=== PATIENT | male | born 1930 | race Caucasian/White ===

== ENCOUNTER 2017-07-03 13:07 | Emergency (ER) | payer OTHER ==
[~2017-07-03] VITALS: Ht 177.8 cm; Wt 106.6 kg
[~2017-07-03 13:07] MED LIST: APAP500; ASPIR 8181 MG PO; ATIVAN0.5 MG PO; AUGMENTIN 875875 MG PO; CELEXA20 MG PO; CELEXA40 MG; CENTRUM SILVER1 EAC4 PO; COUMADIN 5 MG TA5 M1 PO; DARVOCET-N 1001 EACH PO; DEPAKOTE; DEPAKOTE ER250 MG PO; DULCOLAX10 MG RECTAL; FOLIC ACID1 MG; FOLIC ACID1 MG PO; HYDROCODONE-AP1 EAC6 PO; IMODIUM ADVANC1 EAC1; LASIX 40 MG TAB40 M2 PO; LEVOTHROID50 MCG; LEVOTHYROXIN0.125 M1 PO; LEVOTHYROXINE 0.15MG PO; LIPITOR10 MG PO; MIRALAX17 GM PO; ORAZINC220 MG PO; PEPCID40 MG PO; POTASSIUM20 PO; PRILOSEC 20 MG20 MG PO; PROMETHAZINE HC25 MG; SENNA PLUS; SENNA PLUS TAB1 EACH PO; SEROQUEL XR150 M1 PO; TIMOLOL MA0.5 %/5 M2 OP; TYLENOL325 MG PO; VITAMIN A & D113 GM; VITAMIN D1000 UNI1 PO; VITAMINC500 PO; XALATAN2.5 ML OP; ZOCOR 10 MG TAB10 MG PO
[2017-07-03 13:08] VITALS: BP 117/55
== END 2017-07-03 21:06 | disposition home or self-care (01) ==
LOC: ER 13:07
DX: L02.31 Cutaneous abscess of buttock (principal); K21.9 Gastro-esophageal reflux disease without esophagitis; E03.9 Hypothyroidism, unspecified; E78.5 Hyperlipidemia, unspecified; G40.909 Epilepsy, unspecified, not intractable, without status epilepticus; Z86.718 Personal history of other venous thrombosis and embolism

== ENCOUNTER 2018-08-29 13:09 | Inpatient (IN) | payer OTHER ==
[~2018-08-29] VITALS: Ht 193 cm; Wt 90.7 kg
[2018-08-29 13:14] VITALS: BP 81/50
--- NOTE | 2018-08-29 13:45 | NUR ---
SPIRITUAL PROVIDER AT BEDSIDE WITH PT
[2018-08-29 14:15] LABS: ABSOLUTE NEUTROPHILS 11.5 thou/uL (1.4-8.2); BASOPHILS 0.5 % (0.0-2.0); EOSINOPHILS 0.6 % (0.0-3.0); HEMATOCRIT 49.4 % (42.0-52.0); HEMOGLOBIN 15.8 gm/dL (14.0-18.0); LYMPHOCYTES 33.5 % (24.0-44.0); MCH 31.3 pg (26.0-34.0); MCV 97.7 fL (80.0-100.0); MONOCYTES 3.8 % (1.0-8.0); PLATELET COUNT 237 thou/uL (150-400); POLYS 61.6 % (36.0-66.0); RBC 5.05 mil/uL (4.50-6.00); RDW 14.9 % (10.5-14.5); WBC 18.6 thou/uL (4.0-11.0)
[2018-08-29 14:26] LABS: CALCIUM 9.2 mg/dL (8.5-10.1)
[2018-08-29 14:33] LABS: TROPONIN-I 0.13 ng/mL (<0.06)
[2018-08-29 14:41] VITALS: BP 99/54
[2018-08-29 14:56] VITALS: BP 97/53
[2018-08-29 15:37] VITALS: BP 149/64
--- NOTE | 2018-08-29 16:56 | NUR ---
RECEIVED PT APPROX 1500. NON RESPONSIVE. AGONAL BREATHING. NON REBREATHER ON. NOTED SKIN TEAR ON CHEST AND RIGHT HAND. IO/IV ACCESS NOTED. VSS. DR. CHA NOTIFIED. ORDERS FOR LASIX OBTAINED. APPEARS IN PAIN/RESTLESS. MORPHINE GIVEN ORDERED. WILL CONT. TO MONITOR.
--- NOTE | 2018-08-29 17:51 | NUR ---
APPROX 1735. UPON ROUNDING NO BREATHING NOTED. HEART SOUNDS ABSENT UPON AUSCULTATION. PUPILS FIXED DILATED. NONE REACTIVE TO LIGHT. CARDIAC VERIFIED BY LORRI VIVEROS. DR. CHA NOTIFIED-ORDERS FOR 2 RNS TO PRONOUNCE. DTR YURI NOTIFIED.
--- NOTE | 2018-08-30 17:58 | EKG ---
[address] [address] ELECTROCARDIOGRAM REPORT Name: CURTIS GARCIA Room #: 421-P [facility] [place] ..#: [id number] ������������������ Admission: 08/29/18 ������������������ Attend Phys: Breanne Gaitan MD Discharge: 08/29/18 ������������������ Date of : 30 Report #: [id number] ����������������������������������������������������������������� [id number] THIS REPORT FOR: //name// [facility] ED Test Date: 2018-08-29 Test Time: 13:15:17 Pat Name: CURTIS MEDINAJEANNINESANDEE Department: Room: [facility] Gender: M Manager Career: [employer] : 1930 Requested By: Mesfin Leslie Order Number: [id number] MD: Ernie Huff Measurements Intervals [place] Rate: 124 P: SD: QRS: -86 QRSD: 137 T: 66 QT: 355 QTc: 510 Interpretive Statements Atrial fibrillation Right bundle branch block Anterior infarct, old Electronically Signed On 08-30-2018 17:58:32 CDT by Ernie Huff [email or web address] ��������������������������������������������� <ELECTRONICALLY SIGNED> ���������������������������������������� By: Ernie Huff MD ��������������������������������������������� 08/30/18 1758 D: [id number] Ernie Huff MD /VIVEK
== END 2018-08-29 20:45 | DRG 179 ==
LOC: ER 13:09 → EROBS 14:36 → 4E 14:36
PROVIDERS: Emergency Medicine; ADMIT Internal Medicine
DX: J69.0 Pneumonitis due to inhalation of food and vomit (principal); I46.9 Cardiac arrest, cause unspecified; Z66 Do not resuscitate; F41.9 Anxiety disorder, unspecified; F32.9 Major depressive disorder, single episode, unspecified; G40.909 Epilepsy, unspecified, not intractable, without status epilepticus; K21.9 Gastro-esophageal reflux disease without esophagitis; E78.5 Hyperlipidemia, unspecified; E03.9 Hypothyroidism, unspecified; F03.90 Unspecified dementia, unspecified severity, without behavioral disturbance, psychotic disturbance, mood disturbance, and anxiety; Z79.01 Long term (current) use of anticoagulants; Z79.1 Long term (current) use of non-steroidal anti-inflammatories (NSAID); Z86.718 Personal history of other venous thrombosis and embolism; Z79.2 Long term (current) use of antibiotics; Z90.49 Acquired absence of other specified parts of digestive tract; Z79.82 Long term (current) use of aspirin; Z79.899 Other long term (current) drug therapy
CPT/HCPCS: 10084